=== PATIENT | female | born 1985 | race Caucasian/White ===

== ENCOUNTER 2023-11-08 08:45 | Outpatient (CLI) | payer OTHER, SELFPAY ==
--- NOTE | ~2023-11-08 | MR_ITS ---
EXAMINATION: MR lumbar spine wo con DATE: 11/08/2023 09:32 INDICATION: Degeneration of lumbar intervertebral disc. Low back pain. TECHNIQUE: Magnetic resonance imaging (MRI) of the lumbar spine was performed without intravenous con trast. Sequences included sagittal T2-weighted FSE, sagittal T2-weighted FS FSE, sagittal T1-weighted FSE, and axial T2-weighted FSE. COMPARISON: CT 04/18/2013 FINDINGS: There is 5 degrees dextrocurvature of thoracolumbar spine. S1 is a transitional segment. Th ere is mild chronic anterior wedging of T11 and T12 vertebral bodies. Intervertebral disc heights are normal. The distal spinal cord signal intensity is normal. The conus medullaris is at L1-L2. The fol lowing disc levels are specifically discussed: L1-L2: The disc does not extend beyond the endplate margin. There is mild bilateral facet joint osteo arthritis. There is no neural foraminal stenosis. There is no central canal stenosis. L2-L3: The disc does not extend beyond the endplate margin. There is mild bilateral facet joint osteo arthritis. There is no neural foraminal stenosis. There is no central canal stenosis. L3-L4: The disc does not extend beyond the endplate margin. There is mild bilateral facet joint osteo arthritis. There is no neural foraminal stenosis. There is no central canal stenosis. L4-L5: The disc does not extend beyond the endplate margin. There is mild bilateral facet joint osteo arthritis. There is no neural foraminal stenosis. There is no central canal stenosis. L5-S1: The disc does not extend beyond the endplate margin. There is mild right and moderate left fac et joint osteoarthritis. There is no neural foraminal stenosis. There is no central canal stenosis. IMPRESSION: 1. Lumbar facet joint osteoarthritis. Reviewed, dictated and finalized at location A. [employer]
--- NOTE | ~2023-11-08 | MR_ITS ---
EXAMINATION: MR cervical spine wo con DATE: 11/08/2023 09:31 INDICATION: Degeneration of cervical intervertebral disc. Neck pain. TECHNIQUE: Magnetic resonance imaging (MRI) of the cervical spine was performed without intravenous c ontrast. Sequences included sagittal T2-weighted FSE, sagittal T2-weighted FS FSE, sagittal T1-weight ed FSE, axial MERGE, and axial T2-weighted FSE. COMPARISON: None FINDINGS: Bone alignment is normal. Vertebral body heights are normal. There is mildly decreased disc height at C5-C6. The spinal cord signal intensity is normal. The following disc levels are specifica lly discussed: C2-C3: The disc does not extend beyond the endplate margin. There is no uncovertebral joint osteoarth ritis. There is no facet joint osteoarthritis. There is no neural foraminal stenosis. There is no kiana tral canal stenosis. C3-C4: The disc does not extend beyond the endplate margin. There is mild bilateral uncovertebral steve nt osteoarthritis. There is mild bilateral facet joint osteoarthritis. There is no neural foraminal s tenosis. There is no central canal stenosis. C4-C5: The disc does not extend beyond the endplate margin. There is mild left uncovertebral joint os teoarthritis. There is mild bilateral facet joint osteoarthritis. There is mild left neural foraminal stenosis. There is no central canal stenosis. C5-C6: There is a central protrusion. There is mild bilateral uncovertebral joint osteoarthritis. The re is mild bilateral facet joint osteoarthritis. There is mild bilateral neural foraminal stenosis. T here is mild central canal stenosis. C6-C7: There is a central protrusion. There is mild right and moderate left uncovertebral joint osteo arthritis. There is mild bilateral facet joint osteoarthritis. There is mild left neural foraminal st enosis. There is mild central canal stenosis. C7-T1: The disc does not extend beyond the endplate margin. There is no uncovertebral joint osteoarth ritis. There is no facet joint osteoarthritis. There is no neural foraminal stenosis. There is no kiana tral canal stenosis. IMPRESSION: 1. Mild cervical spondylosis. Reviewed, dictated and finalized at location A. [employer]
== END 2023-11-08 08:46 ==
PROVIDERS: Visit Provider Family Medicine
DX: M43.02 Spondylolysis, cervical region (principal); M47.816 Spondylosis without myelopathy or radiculopathy, lumbar region; M51.36 Other intervertebral disc degeneration, lumbar region; M50.30 Other cervical disc degeneration, unspecified cervical region
CPT/HCPCS: 72141; 72148